=== PATIENT | male | born 1985 | race Caucasian/White ===

== ENCOUNTER 2018-01-30 18:20 | Emergency (ER) | payer SELFPAY ==
[2018-01-30] MEDS ORDERED: Ibuprofen 800 MG Tab PO ONE (18:44)
[2018-01-30] MEDS ORDERED: Acetaminophen 325 MG Tab PO ONE (18:44)
--- NOTE | 2018-01-30 19:13 | EDM.PDOC ---
ED HPI GENERAL MEDICAL PROBLEM - General Chief Complaint: Trauma Stated Complaint: SMASHED BOTH LEG AT WORK Time Seen by Provider: 01/30/18 18:44 Source of Information: Reports: Patient, RN Notes Reviewed - History of Present Illness INITIAL COMMENTS - FREE TEXT/NARRATIVE: 32-year-old male comes in with contusion injuries of the left knee, right leg and probable sprain injury of the right ankle. He was at work helping moving what is described as a large metal platform. I believe they were lifting it with some type of a forklift device and fell backwards in the wrong direction falling on top of his left knee, right leg. He does have medial and lateral right ankle pain he thinks may be more from twisting of the foot and ankle. He has been ambulatory, walked into the department but states there was considerable discomfort of the right ankle leg and to a lesser amounts the left knee. No injury to the hips or pelvis or anything above the waist. He states he did have paresthesias initially of the right leg but those have resolved. This incident did occur about 2 hours ago. Right Ankle Pain Score (Numeric/FACES): 8 - Related Data Allergies Allergy/AdvReac Type Severity Reaction Status Date / Time calamine Allergy Rash Verified 01/30/18 18:57 Past Medical History - Past Health History Medical/Surgical History: Denies Medical/Surgical History Social & Family History - Tobacco Use Smoking Status *Q: Former Smoker Used Tobacco, but Quit: Yes Month/Year Tobacco Last Used: 01/30/17 - Recreational Drug Use Recreational Drug Use: No Review of Systems - Review of Systems Review Of Systems: See Below Constitutional: Reports: No Symptoms Eyes: Reports: No Symptoms Ears: Reports: No Symptoms Nose: Reports: No Symptoms Respiratory: Denies: Shortness of Breath Cardiovascular: Denies: Chest Pain GI/Abdominal: Denies: Abdominal Pain, Nausea, Vomiting Musculoskeletal: Reports: Leg Pain (Right leg), Joint Pain (Left knee, right ankle) Skin: Reports: Bruising (Mild bruising right lateral ankle), Erythema (Left knee , right leg) Neurological: Reports: Numbness (Right leg, gone) ED EXAM, GENERAL - Physical Exam Exam: See Below General Appearance: Alert, Mild Distress Eye Exam: Bilateral Eye: PERRL Throat/Mouth: Normal Inspection Head: Atraumatic Neck: Supple Respiratory/Chest: No Respiratory Distress Extremities: Joint Swelling (Very mild swelling of the lateral aspect right ankle with moderate tenderness lateral ankle, non-tender medially, joint is stable), Leg Pain (There is moderate tenderness of the anterior right leg, moderate swelling of the mid right lower leg with some superficial abrasion injury, very mild Swelling only, not tensely swollen or painful to palpation.), Other (There is erythema and mild swelling of the anterior left knee with moderate localized tenderness, good range of motion with mild discomfort only, no visible effusion, upper legs pelvis hips all nontender.) Neurological: Alert, Oriented, No Motor/Sensory Deficits Course - Vital Signs Last Recorded V/S: Last Vital Signs Temp 98.6 F 01/30/18 18:30 Pulse 83 01/30/18 18:30 Resp 16 01/30/18 18:30 BP 158/105 H 01/30/18 18:30 Pulse Ox 99 01/30/18 18:30 - Orders/Labs/Meds Orders: Active Orders 24 hr Category Date Time Status Ankle Min 3V Rt [CR] Stat Exams 01/30/18 19:06 Taken Knee Min 4V Lt [CR] Stat Exams 01/30/18 19:07 Taken Tibia Fibula Rt [CR] Stat Exams 01/30/18 19:08 Taken Meds: Medications Discontinued Medications Generic Name Dose Route Start Last Admin Trade Name Krystle PRN Reason Stop Dose Admin Acetaminophen 975 mg 01/30/18 18:44 01/30/18 18:56 Tylenol PO 01/30/18 18:45 975 mg NOW ONE Administration Ibuprofen 800 mg 01/30/18 18:44 01/30/18 18:56 Motrin PO 01/30/18 18:45 800 mg ONETIME ONE Administration - Re-Assessments/Exams Free Text/Narrative Re-Assessment/Exam: 01/30/18 19:33 X rays of the L knee, R ankle, R tib/fib neg for fx. Discharge instr. as documented. Departure - Departure Time of Disposition: 19:50 Disposition: Home, Self-Care 01 Condition: Fair Clinical Impression: Contusion of left knee Qualifiers: Encounter type: initial encounter Qualified Code(s): S80.02XA - Contusion of left knee, initial encounter Contusion of right lower leg Qualifiers: Encounter type: initial encounter Qualified Code(s): S80.11XA - Contusion of right lower leg, initial encounter Right ankle sprain Qualifiers: Encounter type: initial encounter Involved ligament of ankle: unspecified ligament Qualified Code(s): S93.401A - Sprain of unspecified ligament of right ankle, initial encounter - Discharge Information Referrals: PCP,None [Primary Care Provider] - Forms: ED Department Discharge Additional Instructions: Ice packs and elevation all areas of injury but especially right lower leg to help reduce swelling as soon as possible to help keep that from getting more swollen. Santiago wrap right ankle and right lower leg until pain and swelling resolving, you may alternate Tylenol and ibuprofen as needed for discomfort. Crutches, no weight bearing R leg and ankle for now. Follow-up tomorrow with your company's occupational health nurse located here in [place] for recheck, further guidance regarding return to work plan. Return to ED as needed if symptoms worsening in any way. - My Orders Last 24 Hours: My Active Orders 01/30/18 19:06 Ankle Min 3V Rt [CR] Stat 01/30/18 19:07 Knee Min 4V Lt [CR] Stat 01/30/18 19:08 Tibia Fibula Rt [CR] Stat - Assessment/Plan Last 24 Hours: My Active Orders 01/30/18 19:06 Ankle Min 3V Rt [CR] Stat 01/30/18 19:07 Knee Min 4V Lt [CR] Stat 01/30/18 19:08 Tibia Fibula Rt [CR] Stat
--- NOTE | 2018-01-31 07:41 | CR ---
Right ankle: Four views of the right ankle were obtained. Comparison: No previous study. Small calcification again noted within the distal Achilles tendon at the attachment to the calcaneus. Ankle mortise is symmetric. No fracture, dislocation or other bony abnormality is seen. Impression: 1. Small calcification at the attachment of the distal Achilles tendon to the calcaneus. 2. Right ankle study is otherwise unremarkable. Diagnostic code #2
--- NOTE | 2018-01-31 07:41 | CR ---
Left knee: Four views of the left knee were obtained. Comparison: No previous study. Medial and lateral joint compartments are maintained in height. No joint effusion is seen. No fracture or other bony abnormality is appreciated. Impression: 1. Unremarkable left knee exam. Diagnostic code #1
--- NOTE | 2018-01-31 07:41 | CR ---
Right tibia and fibula: AP and lateral views of the right tibia and fibula were obtained. Soft tissue swelling is seen. Minimal calcification is noted within the distal Achilles tendon at the attachment to the calcaneus which is incidental. No acute fracture or other bony abnormality is appreciated. Impression: 1. Incidental findings as noted above. No acute bony abnormality is identified on two-view right tibia and fibula study. Diagnostic code #2
== END 2018-01-30 20:10 | disposition home or self-care (01) ==
LOC: JD.ED 18:20
DX: S93.401A Sprain of unspecified ligament of right ankle, initial encounter (principal); S80.02XA Contusion of left knee, initial encounter; Z87.891 Personal history of nicotine dependence; Z88.8 Allergy status to other drugs, medicaments and biological substances; X50.9XXA Other and unspecified overexertion or strenuous movements or postures, initial encounter
CPT/HCPCS: 73564; 73590; 73610; 99284; A9270; 99283